=== PATIENT | female | born 1990 | race Caucasian/White ===

== ENCOUNTER → 2019-04-09 | Outpatient (CLI) | payer OTHER ==
[~2019-04-09] MED LIST: BCP TD; CYMBALTA30 MG PO; EFFEXOR100 MG PO; HYDROXYZINE PAM25 MG PO; KLONOPIN 1MG1 MG PO; LAMICTAL200 MG PO; RISPERDAL2 MG PO; SRONYX 0.02 MG-1 TAB PO; ZOFRAN ODT4 MG PO
== END ==
LOC: BHSO 13:48
DX: F33.42 Major depressive disorder, recurrent, in full remission (principal)
CPT/HCPCS: G0463